=== PATIENT | female | born 1960 | race Caucasian/White ===

== ENCOUNTER 2017-11-19 08:36 | Outpatient (CLI) | payer MEDICARE ==
--- NOTE | 2017-11-19 11:18 | ULT ---
THYROID ULTRASOUND: DATE: 11/19/17. COMPARISON: None. HISTORY Evaluate thyroid nodule, 57-year-old female. TECHNIQUE: Multiplanar, fuentes scale sonographic imaging of the thyroid gland obtained. FINDINGS: The thyroid isthmus measures 1 mm in AP dimension. The right lobe of the thyroid gland measures 2.4 x 0.7 cm. There is an oblong hypoechoic lesion with in the right lobe of the thyroid gland measuring 1.3 x 0.4 x 0.6 cm. It demonstrates no internal blo od flow. There is a probable second tiny hypodense nodule within the lateral aspect of the right lob e of the thyroid gland measuring 2 x 3 mm. The left lobe of the thyroid gland measures j0.9 x 2.6 x 0.7 cm. There is an oval hypoechoic nodule within the left lobe of the thyroid gland measuring 1.2 x 0.4 x 0.6 cm. There is a second hypoechoic nodule in the left lobe laterally measuring 3 x 3 mm. IMPRESSION: Bilateral thyroid nodules noted, the largest on either side less than 1.5 cm in size. No internal ca lcifications are seen. Recommend a followup thyroid ultrasound in 6 months. POS: SHIRA
== END 2017-11-19 08:37 | disposition home or self-care (01) ==
LOC: ULT 08:36
PROVIDERS: ATTEND Family Medicine
DX: E04.1 Nontoxic single thyroid nodule (principal); E04.2 Nontoxic multinodular goiter
CPT/HCPCS: 76536

== ENCOUNTER 2018-01-14 08:07 | Outpatient (CLI) | payer MEDICARE ==
--- NOTE | 2018-01-14 10:39 | RAD ---
4 VIEWS LUMBAR SPINE: Date: 01/14/18 HISTORY: Lumbar radiculopathy. Patient has low back pain with pain radiating down left leg. FINDINGS: There are five non-rib bearing lumbar-type vertebral bodies. The vertebral body heights are within no rmal limits. There is Grade II anterolisthesis of L5 on S1 with bilateral pars defects at this level. There is loss of intervertebral disc height at the lumbosacral junction. No additional level of subl uxation is seen. There is no abnormal translational motion seen between the flexion and extension vie ws of lumbar spine. Vascular calcifications seen in abdominal aorta and iliac arteries. IMPRESSION: Grade II spondylolisthesis lumbosacral junction with prominent degenerative changes also present at t his level. POS: SHIRA
--- NOTE | 2018-01-14 11:35 | MRI ---
MRI LUMBAR SPINE: HISTORY: Low back pain radiating down the leg. FINDINGS: Multiplanar, multisequence noncontrast-enhanced MRI images of the lumbar spine obtained. MRI images lumbar spine demonstrate grade I anterolisthesis of L5 on S1. T12-L1, L1-2, L2-3: Unremarkable. L3-4: There is mild facet and ligamentum flavum hypertrophy. The central canal and neural foramen a re patent. L4-5: Some disk desiccation is seen. There is a broad-based disk bulge with bilateral facet hypertr ophy. The central canal and neural foramen are patent. L5-S1: Vacuum disk changes seen at this level. There is 10 mm of anterolisthesis of L5 on S1. Ther e is spondylolysis of a pars interarticularis of L5 bilaterally. There is severe compression of the neural foramen and L5 nerve roots bilaterally due to the anterolisthesis. Some disk desiccation and degenerative changes seen. End plate irregularity and Modic type I and III changes seen involving mu ch of the inferior aspect of the L5 vertebral body and superior anterior aspect of the S1 vertebra. IMPRESSION: Severe intervertebral degenerative disk changes with end plate degenerative changes at L5-S1. There is grade II anterolisthesis of L5 on S1 with pars defect at the L5 level. POS: JESSICA
== END 2018-01-14 08:08 | disposition home or self-care (01) ==
LOC: TBSIIMAG 08:07
PROVIDERS: ATTEND Surgery
DX: M47.26 Other spondylosis with radiculopathy, lumbar region (principal); M43.16 Spondylolisthesis, lumbar region
CPT/HCPCS: 72110; 72148

== ENCOUNTER 2018-02-06 08:01 | Outpatient (CLI) | payer MEDICARE ==
--- NOTE | 2018-02-06 09:33 | RAD ---
CERVICAL SPINE SERIES 4 VIEWS: Date: 02/06/18 HISTORY: Previous neck surgery. Severe neck pain. FINDINGS: The vertebral bodies are normal in size. The patient has undergone anterior cervical fusion with plac ement of the plate and screws at the C5-6 level. There are degenerative changes at the C4-5 and C6-7 levels. I do not see any abnormal motion related to the fusion in flexion or extension. IMPRESSION: Arthritic changes and postop changes of the spine. POS: SHIRA
--- NOTE | 2018-02-06 10:04 | CT ---
CERVICAL SPINE CT NONCONTRAST: CLINICAL HISTORY: Neck pain. FINDINGS: ACDF operative change is present at C5-C6. There is postoperative fusion spanning the disk space wit h evidence of an intradiskal prosthesis. Anterior plate and two vertebral body screws are present at C5 and C6. There is no evident hardware complication. Focal kyphosis is centered at the C4-C5 leve l. Trace retrolisthesis at C4-C5 is present. Degenerative endplate abnormalities with associated di sk space narrowing present at C4-C5 and at C6-C7, at the sites adjacent the operative fusion. There is also moderate right facet osteoarthritis of the C3-C4 level. No retropulsion of bone into the gm tebral canal. The craniocervical junction is intact. Contents of the vertebral canal are limited in assessment on the basis of noncontrast CT imaging, although there is no high grade osseous compromis e of the vertebral canal. There is multilevel bilateral facet and uncinate process hypertrophy produ cing mild osseous narrowing of the bilateral C5-C6 neural foramina. Moderate osseous compromise at t he left C6-C7, and mild right C6-C7 neural foraminal narrowing. IMPRESSION: Postoperative cervical spine with degenerative changes, as discussed above. POS: JESSICA
== END 2018-02-06 08:02 | disposition home or self-care (01) ==
LOC: TBSIIMAG 08:01
PROVIDERS: ATTEND Surgery
DX: M47.892 Other spondylosis, cervical region (principal); M50.321 Other cervical disc degeneration at C4-C5 level; Z98.1 Arthrodesis status
CPT/HCPCS: 72050; 72125